=== PATIENT | male | born 1950 | race Caucasian/White ===

== ENCOUNTER 2019-06-07 12:50 | Day surgery (SDC) | payer MEDICARE, OTHER ==
[~2019-06-07] VITALS: Ht 182.9 cm; Wt 104.6 kg
[~2019-06-07 12:50] MED LIST: FISH1000 PO; MULVITMIND PO
[2019-06-07] MEDS ORDERED: Klor-Con 1010 MEQ PO (13:49)
== END 2019-06-07 23:59 | disposition home or self-care (01) ==
LOC: ORSCSDS 12:50
PROVIDERS: Surgery
PROC: 0DJD8ZZ Inspection of Lower Intestinal Tract, Via Natural or Artificial Opening Endoscopic (ICD-10-PCS; principal; 2019-06-07 14:15)
DX: Z12.11 Encounter for screening for malignant neoplasm of colon (principal); K57.30 Diverticulosis of large intestine without perforation or abscess without bleeding; E78.1 Pure hyperglyceridemia; I10 Essential (primary) hypertension; E78.5 Hyperlipidemia, unspecified; E66.9 Obesity, unspecified; Z68.32 Body mass index [BMI] 32.0-32.9, adult
CPT/HCPCS: J2704; J7120

== ENCOUNTER → 2020-03-11 | Outpatient (CLI) | payer MEDICARE, OTHER ==
[~2020-03-11] MED LIST changes: +Klor-Con 1010 MEQ PO
== END | disposition home or self-care (01) ==
LOC: PLD 11:24 → LAB SHORT 11:24
DX: D03.39 Melanoma in situ of other parts of face (principal)
CPT/HCPCS: 88305

== ENCOUNTER → 2021-04-29 | Outpatient (CLI) | payer MEDICARE, OTHER | LOC: LAB SHORT 11:38 → LAB 11:38 | DX: D48.5 Neoplasm of uncertain behavior of skin (principal); L81.4 Other melanin hyperpigmentation; L57.8 Other skin changes due to chronic exposure to nonionizing radiation; Z88.8 Allergy status to other drugs, medicaments and biological substances | CPT/HCPCS: 88305 ==

== ENCOUNTER 2021-12-04 14:54 | Emergency (ER) | payer MEDICARE, OTHER ==
[~2021-12-04] VITALS: Ht 182.9 cm; Wt 104.3 kg
[2021-12-04 15:55] LABS: BASOPHILS ABSOLUTE AUTO 0.05 K/mm3 (0.00-0.23); BASOPHILS PERCENT AUTO 1 % (0-2); EOSINOPHILS ABSOLUTE AUTO 0.15 K/mm3 (0.00-0.68); EOSINOPHILS PERCENT AUTO 2 % (0-6); Hemoglobin 15.5 g/dL (13.5-17.5); IMMATURE GRAN ABSOLUTE AUTO 0.03 K/mm3 (0.00-0.10); IMMATURE GRAN PERCENT AUTO 0 % (0-1); LYMPHOCYTES ABSOLUTE AUTO 2.18 K/mm3 (0.84-5.20); LYMPHOCYTES PERCENT AUTO 29 % (21-46); MONOCYTES ABSOLUTE AUTO 0.68 K/mm3 (0.16-1.47); MONOCYTES PERCENT AUTO 9 % (4-13); Mean Corpuscular HGB 28.8 pg (26.0-34.0); Mean Corpuscular HGB Conc 33.7 g/dL (31.5-36.5); Mean Corpuscular Volume 86 fL (80-100); Mean Platelet Volume 9.6 fL (9.1-12.4); NEUTROPHILS ABSOLUTE AUTO 4.52 K/mm3 (1.96-9.15); NEUTROPHILS PERCENT AUTO 59 % (41-73); Platelet Count 317 K/mm3 (150-400); RDW Coefficient Variation 12.3 % (11.7-14.2); RDW Standard Deviation 38.5 fL (35.1-46.3); Red Blood Cell Count 5.38 M/mm3 (4.30-5.90); White Blood Cell Count 7.61 K/mm3 (4.00-11.30)
[2021-12-04 16:10] LABS: Alanine Aminotransfer (ALT/SGP 26 U/L (12-78); Albumin, Blood 3.5 g/dL (3.4-5.0); Albumin/Globulin Ratio 0.9 (0.8-1.8); Alk Phos 121 U/L (50-136); Anion Gap 7 mmol/L (6-16); Aspartate Aminotrans (AST/SGOT 21 U/L (12-37); Bilirubin, Total 0.3 mg/dL (0.1-1.0); Blood Urea Nitrogen 20 mg/dL (8-24); Bun/Creatinine Ratio 18.3 (12.0-20.0); CO2, Blood 25 mmol/L (21-32); Calcium, Blood 8.8 mg/dL (8.5-10.1); Chloride, Blood 108 mmol/L (98-108); Creatinine, Blood 1.09 mg/dL (0.60-1.20); Glomerular Filtration Rate >60 (60-); Glucose, Blood 119 mg/dL (70-99); Potassium, Blood 4.2 mmol/L (3.5-5.5); Sodium, Blood 140 mmol/L (136-145); Total Protein, Blood 7.5 g/dL (6.4-8.2)
[2021-12-04 18:58] LABS: International Normalized Ratio 0.98; Prothrombin Time Results 10.3 Sec (9.7-11.5)
[2021-12-04] MEDS ORDERED: PRAM.5 PO (19:11)
[2021-12-04 19:12] LABS: Influenza A, PCR NEGATIVE (NEGATIVE); Influenza B, PCR NEGATIVE (NEGATIVE); Resp Syncytial Virus, PCR NEGATIVE (NEGATIVE); SARS-Cov-2 (COVID-19) PCR, MMC NEGATIVE (NEGATIVE)
== END 2021-12-04 22:17 | disposition short-term general hospital (02) ==
LOC: ER 14:54
PROVIDERS: Physician Assistant; Student in an Organized Health Care Education/Training Program
DX: G93.9 Disorder of brain, unspecified (principal)
CPT/HCPCS: 0241U; 70450; 80053; 85025; 85610; 85730; 96365; 96375; 99285-25; J1100; J1953

== ENCOUNTER 2022-01-19 11:53 | Day surgery (SDC) | payer MEDICARE, OTHER ==
[~2022-01-19] VITALS: Ht 182.9 cm; Wt 102.1 kg
[~2022-01-19 11:53] MED LIST changes: +PRAM.5 PO
[2022-01-19] MEDS ORDERED: LISI5 PO (12:36)
[2022-01-19] MEDS ORDERED: LEVE500 PO (12:37)
--- NOTE | 2022-01-19 13:27 | NUR ---
FLEET ENEMA GIVEN DUE TO POOR PREP ORDERED BY DR. RAUSCH. PATIENT HELD FLUID FOR TEN MINUTES THEN HAD A BOWEL MOVEMENT ON THE BEDSIDE COMMODE. BOWEL MOVEMENT HAD NO SOLID MATERIAL, AND WAS A LIGHT TATE. RESULTS GIVEN TO DR. RAUSCH.
--- NOTE | 2022-01-19 13:41 | NUR ---
01/19/22 1341 Jennifer Fischer History, Chart, Medications and Allergies reviewed before start of procedure. Patient confirms NPO status and agrees with scheduled surgery. 3-LEAD EKG REVIEWED WITH PHYSICIAN PRIOR TO START OF PROCEDURE. MONITOR INTACT WITH CONTINUOUS PULSE OXIMETRY AND INTERMITTENT BP. PATIENT DETERMINED TO BE ASA APPROPRIATE FOR PROPOFOL SEDATION PRIOR TO START OF PROCEDURE BY DR. RAUSCH.
--- NOTE | 2022-01-19 14:55 | NUR ---
Patient up to Ambulate independently. Gait steady. Discharge instructions reviewed with patient. Patient verbalizes understanding. Copy given to patient to take home, WELL FAMILY. Patient States Post-Procedure ride home has been arranged. Discharged via wheelchair to private car for ride home.
[2022-01-26] MEDS ORDERED: OXYC5 PO (16:39)
== END 2022-01-19 14:55 | disposition home or self-care (01) ==
LOC: ORSCMMR 11:53 → ORD 13:30 → ORSCMMR 14:55
PROVIDERS: Surgery
PROC: 0DBN8ZX Excision of Sigmoid Colon, Via Natural or Artificial Opening Endoscopic, Diagnostic (ICD-10-PCS; principal; 2022-01-19 13:30)
DX: R93.5 Abnormal findings on diagnostic imaging of other abdominal regions, including retroperitoneum (principal); C79.9 Secondary malignant neoplasm of unspecified site; K57.30 Diverticulosis of large intestine without perforation or abscess without bleeding; Z79.899 Other long term (current) drug therapy
CPT/HCPCS: 88305; A9270; J2704; J7120

== ENCOUNTER → 2022-04-12 | Outpatient (CLI) | payer MEDICARE, OTHER ==
[~2022-04-12] MED LIST changes: +LEVE500 PO; +LISI5 PO; +OXYC5 PO
[2022-04-12 15:36] LABS: C DIFFICILE DNA NEGATIVE (Negative)
== END | disposition home or self-care (01) ==
LOC: LAB 11:33 → LAB SHORT 11:33
PROVIDERS: Internal Medicine Hematology & Oncology
DX: C43.9 Malignant melanoma of skin, unspecified (principal); R10.9 Unspecified abdominal pain; R19.7 Diarrhea, unspecified
CPT/HCPCS: 87493

== ENCOUNTER → 2022-09-15 | Outpatient (CLI) | payer MEDICARE, OTHER | LOC: PLD 12:10 → LAB SHORT 12:10 | DX: L82.1 Other seborrheic keratosis (principal) | CPT/HCPCS: 88305 ==

== ENCOUNTER 2023-03-10 12:30 | Emergency (ER) | payer MEDICARE, OTHER ==
[~2023-03-10] VITALS: Ht 182.9 cm; Wt 102.1 kg
[2023-03-10 13:16] LABS: BASOPHILS ABSOLUTE AUTO 0.07 K/mm3 (0.00-0.23); BASOPHILS PERCENT AUTO 1 % (0-2); EOSINOPHILS ABSOLUTE AUTO 0.31 K/mm3 (0.00-0.68); EOSINOPHILS PERCENT AUTO 5 % (0-6); Hematocrit 46.2 % (37.0-53.0); Hemoglobin 16.5 g/dL (13.5-17.5); IMMATURE GRAN ABSOLUTE AUTO 0.02 K/mm3 (0.00-0.10); IMMATURE GRAN PERCENT AUTO 0 % (0-1); LYMPHOCYTES ABSOLUTE AUTO 2.06 K/mm3 (0.84-5.20); LYMPHOCYTES PERCENT AUTO 33 % (21-46); MONOCYTES ABSOLUTE AUTO 0.99 K/mm3 (0.16-1.47); MONOCYTES PERCENT AUTO 16 % (4-13); Mean Corpuscular HGB 30.2 pg (26.0-34.0); Mean Corpuscular HGB Conc 35.7 g/dL (31.5-36.5); Mean Corpuscular Volume 85 fL (80-100); Mean Platelet Volume 9.8 fL (9.1-12.4); NEUTROPHILS ABSOLUTE AUTO 2.76 K/mm3 (1.96-9.15); NEUTROPHILS PERCENT AUTO 45 % (41-73); Platelet Count 285 K/mm3 (150-400); RDW Coefficient Variation 11.8 % (11.7-14.2); RDW Standard Deviation 35.9 fL (35.1-46.3); Red Blood Cell Count 5.47 M/mm3 (4.30-5.90); White Blood Cell Count 6.21 K/mm3 (4.00-11.30)
[2023-03-10 13:31] LABS: Albumin, Blood 3.3 g/dL (3.4-5.0); Albumin/Globulin Ratio 0.9 (0.8-1.8); Bilirubin, Total 0.3 mg/dL (0.1-1.0); Bun/Creatinine Ratio 11.8 (12.0-20.0); Calcium, Blood 8.9 mg/dL (8.5-10.1); Creatinine, Blood 1.1 mg/dL (0.60-1.20); Globulin, Blood 3.5 g/dL (2.2-4.0); Potassium, Blood 3.8 mmol/L (3.5-5.5); Total Protein, Blood 6.8 g/dL (6.4-8.2)
[2023-03-10] MEDS ORDERED: DIAZEPAM10 MG PO (14:12)
[2023-03-10] MEDS ORDERED: MIRAPEX ER0.75 MG PO (14:14)
[2023-03-10 15:00] VITALS: BP 132/74
--- NOTE | 2023-03-10 15:21 | NUR ---
Pt. is in ED11 await lab results. Pt. is pleasant and spouse is present. Facilitatesd life review and listened for Pt. and family concerns. Pt. is a little unsettled as to the cause of his lengthy illness. Rapport is established. Pt. displays evidence of being at peace, though spouse displays some level of anxiety. Engage in theraputic listening with a calming presence. Prayed with Pt. and spouse. Both verbalized gratitude for the spiritual care visit. Spouse requested this police worker to inform her two pastors.
== END 2023-03-10 16:03 | disposition home or self-care (01) ==
LOC: ER 12:30
PROVIDERS: Physician Assistant
DX: R10.9 Unspecified abdominal pain (principal); Z79.899 Other long term (current) drug therapy
CPT/HCPCS: 80053; 83690; 85025; 86850; 86900; 86901; 99284

== ENCOUNTER 2023-03-13 09:29 | Emergency (ER) | payer MEDICARE, OTHER ==
[~2023-03-13] VITALS: Ht 182.9 cm; Wt 104.3 kg
[~2023-03-13 09:29] MED LIST changes: +DIAZEPAM10 MG PO; +MIRAPEX ER0.75 MG PO
[2023-03-13] MEDS ORDERED: ONDA4ODT MM (10:03)
[2023-03-13 10:08] LABS: BASOPHILS ABSOLUTE AUTO 0.05 K/mm3 (0.00-0.23); BASOPHILS PERCENT AUTO 1 % (0-2); EOSINOPHILS ABSOLUTE AUTO 0.26 K/mm3 (0.00-0.68); EOSINOPHILS PERCENT AUTO 4 % (0-6); Hematocrit 46.3 % (37.0-53.0); IMMATURE GRAN ABSOLUTE AUTO 0.02 K/mm3 (0.00-0.10); IMMATURE GRAN PERCENT AUTO 0 % (0-1); LYMPHOCYTES ABSOLUTE AUTO 1.76 K/mm3 (0.84-5.20); LYMPHOCYTES PERCENT AUTO 27 % (21-46); MONOCYTES ABSOLUTE AUTO 0.66 K/mm3 (0.16-1.47); MONOCYTES PERCENT AUTO 10 % (4-13); Mean Corpuscular HGB 28.8 pg (26.0-34.0); Mean Corpuscular HGB Conc 34.6 g/dL (31.5-36.5); Mean Corpuscular Volume 83 fL (80-100); Mean Platelet Volume 9.1 fL (9.1-12.4); NEUTROPHILS ABSOLUTE AUTO 3.68 K/mm3 (1.96-9.15); NEUTROPHILS PERCENT AUTO 57 % (41-73); Platelet Count 251 K/mm3 (150-400); RDW Coefficient Variation 11.6 % (11.7-14.2); RDW Standard Deviation 35.3 fL (35.1-46.3); Red Blood Cell Count 5.55 M/mm3 (4.30-5.90); White Blood Cell Count 6.43 K/mm3 (4.00-11.30)
[2023-03-13 10:30] LABS: Albumin, Blood 3.5 g/dL (3.4-5.0); Albumin/Globulin Ratio 0.9 (0.8-1.8); Bilirubin, Total 0.7 mg/dL (0.1-1.0); Bun/Creatinine Ratio 14.8 (12.0-20.0); Calcium, Blood 8.6 mg/dL (8.5-10.1); Creatinine, Blood 1.22 mg/dL (0.60-1.20); Globulin, Blood 3.7 g/dL (2.2-4.0); Potassium, Blood 4.1 mmol/L (3.5-5.5); Total Protein, Blood 7.2 g/dL (6.4-8.2)
[2023-03-13 15:30] VITALS: BP 143/76
== END 2023-03-13 15:58 | disposition home or self-care (01) ==
LOC: ER 09:29
PROVIDERS: Emergency Medicine
DX: K29.70 Gastritis, unspecified, without bleeding (principal); M54.50 Low back pain, unspecified; M79.10 Myalgia, unspecified site; Z88.8 Allergy status to other drugs, medicaments and biological substances
CPT/HCPCS: 70450; 74018; 80053; 83690; 85025; 96361; 96365; 96375; 99285-25; J0780; J1953; J2405; J7030

== ENCOUNTER → 2023-03-15 | Outpatient (CLI) | payer MEDICARE, OTHER ==
[~2023-03-15] MED LIST changes: +ONDA4ODT MM
== END ==
LOC: PLD 13:09 → LAB SHORT 13:09
DX: D48.5 Neoplasm of uncertain behavior of skin (principal)
CPT/HCPCS: 88305

== ENCOUNTER 2023-05-12 17:25 | Inpatient (IN) | payer MEDICARE, OTHER ==
[~2023-05-12] VITALS: Ht 182.9 cm; Wt 98.4 kg
[~2023-05-12 17:25] MED LIST changes: +CARAFATE1 GM/10 M1 PO; +LACOSAMIDE100 M1 PO; +LEVETIRACETAM50014 PO; +OMEP20ER PO; +Prednisone10 MG PO; +REGLAN1013 PO
[2023-05-12 18:05] LABS: BASOPHILS ABSOLUTE AUTO 0.05 K/mm3 (0.00-0.23); BASOPHILS PERCENT AUTO 1 % (0-2); EOSINOPHILS ABSOLUTE AUTO 0.13 K/mm3 (0.00-0.68); EOSINOPHILS PERCENT AUTO 3 % (0-6); Hematocrit 41.8 % (37.0-53.0); Hemoglobin 14.6 g/dL (13.5-17.5); IMMATURE GRAN ABSOLUTE AUTO 0.01 K/mm3 (0.00-0.10); IMMATURE GRAN PERCENT AUTO 0 % (0-1); LYMPHOCYTES ABSOLUTE AUTO 1.43 K/mm3 (0.84-5.20); LYMPHOCYTES PERCENT AUTO 35 % (21-46); MONOCYTES PERCENT AUTO 12 % (4-13); Mean Corpuscular HGB 29.7 pg (26.0-34.0); Mean Corpuscular HGB Conc 34.9 g/dL (31.5-36.5); Mean Corpuscular Volume 85 fL (80-100); Mean Platelet Volume 9.1 fL (9.1-12.4); NEUTROPHILS PERCENT AUTO 49 % (41-73); Platelet Count 290 K/mm3 (150-400); RDW Standard Deviation 37.2 fL (35.1-46.3); Red Blood Cell Count 4.92 M/mm3 (4.30-5.90); White Blood Cell Count 4.12 K/mm3 (4.00-11.30)
[2023-05-12 18:26] LABS: Albumin, Blood 3.4 g/dL (3.4-5.0); Albumin/Globulin Ratio 1.1 (0.8-1.8); Bilirubin, Total 0.5 mg/dL (0.1-1.0); Bun/Creatinine Ratio 12.1 (12.0-20.0); Creatinine, Blood 1.07 mg/dL (0.60-1.20); Globulin, Blood 3.2 g/dL (2.2-4.0); Total Protein, Blood 6.6 g/dL (6.4-8.2)
[2023-05-12 23:35] VITALS: BP 118/61
[2023-05-13] VITALS (15 sets, daily range): BP systolic 113–167; BP diastolic 43–71
--- NOTE | 2023-05-13 00:01 | NUR ---
PT CHART REVIEWED FOR ADMISSION
--- NOTE | 2023-05-13 04:23 | NUR ---
SHIFT SUMMARY 72 YR M ADMITTED TO THIS UNIT FROM THE ED JUST BEFORE MIDNIGHT ON 05/12/23 FOR CHOLELITHIASIS. FULL CODE. NO ACUTE CHANGES THIS SHIFT. PT HAS BEEN NPO SINCE MIDNIGHT FOR SURGICAL CONSULT IN THE A.M. HE HAS HAD NO C/O PAIN OR DISCOMFORT THIS SHIFT AND HAS NOT HAD N/V SINCE ARRIVING TO THIS UNIT. PT WAS EDUCATED ON IGNITION DANGERS AND FIRE SAFETY WHILE OXYGEN IS IN USE. HE STATED THAT HE DOES NOT HAVE ANY IGNITION SOURCES IN HIS BELONGINGS.
[2023-05-13 05:47] LABS: BASOPHILS ABSOLUTE AUTO 0.05 K/mm3 (0.00-0.23); BASOPHILS PERCENT AUTO 2 % (0-2); EOSINOPHILS ABSOLUTE AUTO 0.19 K/mm3 (0.00-0.68); EOSINOPHILS PERCENT AUTO 6 % (0-6); Hematocrit 38.5 % (37.0-53.0); Hemoglobin 13.1 g/dL (13.5-17.5); IMMATURE GRAN ABSOLUTE AUTO 0.01 K/mm3 (0.00-0.10); IMMATURE GRAN PERCENT AUTO 0 % (0-1); LYMPHOCYTES PERCENT AUTO 32 % (21-46); MONOCYTES ABSOLUTE AUTO 0.52 K/mm3 (0.16-1.47); MONOCYTES PERCENT AUTO 15 % (4-13); Mean Corpuscular HGB 28.9 pg (26.0-34.0); Mean Corpuscular Volume 85 fL (80-100); Mean Platelet Volume 9.2 fL (9.1-12.4); NEUTROPHILS ABSOLUTE AUTO 1.57 K/mm3 (1.96-9.15); NEUTROPHILS PERCENT AUTO 46 % (41-73); Platelet Count 259 K/mm3 (150-400); RDW Coefficient Variation 12.1 % (11.7-14.2); RDW Standard Deviation 37.3 fL (35.1-46.3); Red Blood Cell Count 4.53 M/mm3 (4.30-5.90); White Blood Cell Count 3.44 K/mm3 (4.00-11.30)
[2023-05-13 06:54] LABS: Magnesium, Blood 1.8 mg/dL (1.6-2.4)
[2023-05-13 06:57] LABS: Albumin, Blood 2.9 g/dL (3.4-5.0); Bilirubin, Total 0.5 mg/dL (0.1-1.0); Bun/Creatinine Ratio 11.4 (12.0-20.0); Calcium, Blood 8.6 mg/dL (8.5-10.1); Creatinine, Blood 1.05 mg/dL (0.60-1.20); Globulin, Blood 2.8 g/dL (2.2-4.0); Potassium, Blood 4.2 mmol/L (3.5-5.5); Total Protein, Blood 5.7 g/dL (6.4-8.2)
--- NOTE | 2023-05-13 07:30 | NUR ---
ASSUMED CARE: PT RESTING IN BED AT THIS TIME. FAMILY MEMBER AT BEDSIDE. NPO AT THIS TIME, AWAITING FURTHER INPUT FROM NO ACUTE NEEDS AT THIS TIME.
--- NOTE | 2023-05-13 07:50 | NUR ---
DIRECTOR BUSINESS INTELLIGENCE AT BEDSIDE AT THIS TIME
--- NOTE | 2023-05-13 08:53 | NUR ---
IGNITION RISK: PT AND VISITOR DENIES POSSESSION OF LIGHTERS/MATCHES/CIGARRETTES. NO EVIDENCE OF THESE ITEMS IN ROOM
[2023-05-13] MEDS ORDERED: DOCU100 PO (09:45)
[2023-05-13] MEDS ORDERED: CODACE30 PO (09:46)
--- NOTE | 2023-05-13 11:38 | NUR ---
Pt. is awake in bed and welcomes my visit. Spouse is at bedside. Pt. is pleasant. This funeral service licensee saw the spouse yesterday when the Pt. was in Ed triage. Rapport is re-established. Facilitated a little life review, and the circumstances that led to Pts. hospitalization. Seek to normalize the Pt. expereince. Prayed with Pt. Pt. verbalized gratitude for the spiritual care visit.
--- NOTE | 2023-05-13 12:25 | NUR ---
DR RAUSCH CAME TO SPEAK WITH PT AND ABOUT REMOVING GALLBLADDER DUE TO PT'S SYMPTOMS. PT AND AGREEABLE. DR STATED WOULD DO CONSENT FORM IN OR. PT REMAINS NPO AND DENIES FURTHER QUESTIONS OR CONCERNS AT THIS TIME.
[2023-05-13] MEDS ORDERED: LEVE500 PO (12:42)
[2023-05-13] MEDS ORDERED: Prednisone10 MG PO (12:43)
[2023-05-13] MEDS ORDERED: METO10 PO (12:43)
--- NOTE | 2023-05-13 13:15 | NUR ---
Into sds via [employer]. Pt is awake and alert, but forgetful as he has brain cancer. History, Chart, Medications and Allergies reviewed before start of procedure.Pt unable to update allergies or med list. Discussed pt meds and allergies with his spouse Meghana. Lungs clear T/O to Auscultation. Patient confirms NPO status and agrees with scheduled surgery.It is unclear when pt had his last dose of seizure medication. Dr. Lopez made aware. Surgical site prepped with 2% Chlorhexidine cloth wipe.
--- NOTE | 2023-05-13 13:19 | NUR ---
PT TAKEN TO DAY SURGERY VIA [facility] BY STAFF
[2023-05-13] MEDS ORDERED: FAMO10 PO (13:36)
--- NOTE | 2023-05-13 16:15 | NUR ---
PT RETURNED FROM DAY SURGERY VIA CART. BACK TO BED WITH AT BEDSIDE. AND PT EDUCATED ON NEW ORDERS.
[2023-05-13 16:52] LABS: Hematocrit 41.8 % (37.0-53.0); Hemoglobin 14.5 g/dL (13.5-17.5); Mean Corpuscular HGB 29.5 pg (26.0-34.0); Mean Corpuscular HGB Conc 34.7 g/dL (31.5-36.5); Mean Corpuscular Volume 85 fL (80-100); Mean Platelet Volume 9.1 fL (9.1-12.4); Platelet Count 260 K/mm3 (150-400); RDW Coefficient Variation 12.2 % (11.7-14.2); RDW Standard Deviation 37.8 fL (35.1-46.3); Red Blood Cell Count 4.92 M/mm3 (4.30-5.90); White Blood Cell Count 9.49 K/mm3 (4.00-11.30)
--- NOTE | 2023-05-13 17:56 | NUR ---
SHIFT SUMMARY: PT WENT TO OR TODAY FOR A LAPROSCOPIC CHOLECYSTECTOMY. TOLERATING CLEAR LIQUID DIET AT THIS TIME. AT BEDSIDE. NO ACUTE NEEDS OR CONCERNS AT PRESENT.
[2023-05-14 02:03] VITALS: BP 99/64
--- NOTE | 2023-05-14 04:59 | NUR ---
SHIFT SUMMARY A&OX4, AND COOPERATIVE WITH CARE. PT IS HARD OF HEARING. NO ACUTE CHANGES, VSS. PT HAS NOT REQUIRED PAIN COVERAGE SO FAR THIS SHIFT. INDEPENDENT W/FWW TO BATHROOM. TOLERATING CLEAR LIQUIDS WELL, NO NAUSEA. PT REPORTS NOT PASSING ANY FLATUS YET. X4 LAP SITES WITH STERI-STRIPS C/D/I. CALLS APPROPRIATELY, CALL LIGHT WITHIN REACH.
[2023-05-14 06:24] LABS: Albumin, Blood 2.9 g/dL (3.4-5.0); Albumin/Globulin Ratio 0.9 (0.8-1.8); Bilirubin, Total 0.6 mg/dL (0.1-1.0); Bun/Creatinine Ratio 14.3 (12.0-20.0); Calcium, Blood 8.4 mg/dL (8.5-10.1); Creatinine, Blood 1.19 mg/dL (0.60-1.20); Globulin, Blood 3.3 g/dL (2.2-4.0); Potassium, Blood 4.3 mmol/L (3.5-5.5); Total Protein, Blood 6.2 g/dL (6.4-8.2)
[2023-05-14 07:04] VITALS: BP 113/57
--- NOTE | 2023-05-14 07:34 | NUR ---
ASSUMED CARE: PT SITTING UP ON EDGE OF BED DURING REPORT. AT BEDSIDE. STATES SMALL AMOUNT OF TENDERNESS NEAR INCISION SITES BUT NO NAUSEA. DENIES FURTHER NEEDS OR CONCERNS AT THIS TIME.
--- NOTE | 2023-05-14 10:08 | NUR ---
DR RAUSCH CAME TO SEE PT AND STATED HE WANTED TO ADVANCE HIS DIET FURTHER AND CONTINUE TO OBSERVE TODAY. DR AWARE THAT PT WAS HAVING HICCUPS BUT NO OTHER COMPLAINTS THIS AM.
--- NOTE | 2023-05-14 11:57 | NUR ---
IGNITION RISK: SANITATION ASSOCIATE ENTERED ROOM TO EVAULATE IGNITION RISK. PT AND FAMILY DENIES POSSESSION OF MATCHES/LIGHTERS/ CIGARRETTES.
--- NOTE | 2023-05-14 13:49 | NUR ---
PT'S CALLED STAFF TO ROOM DUE TO PT'S HICCUPS THAT ARE STARTING TO GIVE HIM ABDOMINAL PAIN AND TWINGES. CALL TO DR MCKEON WHO GAVE ORDER FOR ATIVAN ONE TIME. INSTRUCTED TO CALL BACK IF FURTHER ORDERS NEEDED.
[2023-05-14 15:04] VITALS: BP 143/69
--- NOTE | 2023-05-14 18:02 | NUR ---
SHIFT SUMMARY: PT TOLERATING FULL LIQUID DIET, NO NAUSEA BUT WAS HAVING HICCUPS. DOSE OF ATIVAN GIVEN PER ORDERS AND PT BECAME CONFUSED AND UNSTEADY ON FEET WITH THIS. PT INSTRUCTED TO NOT ATTEMPT TO GET UP ALONE. PT'S AT BEDSIDE. NO ACUTE NEEDS OR CONCERNS AT THIS TIME.
[2023-05-14 19:20] VITALS: BP 138/88
[2023-05-15 05:28] VITALS: BP 122/69
[2023-05-15 05:55] LABS: Hematocrit 36.9 % (37.0-53.0); Hemoglobin 12.7 g/dL (13.5-17.5); Mean Corpuscular HGB Conc 34.4 g/dL (31.5-36.5); Mean Corpuscular Volume 84 fL (80-100); Mean Platelet Volume 9.7 fL (9.1-12.4); Platelet Count 267 K/mm3 (150-400); RDW Coefficient Variation 12.4 % (11.7-14.2); Red Blood Cell Count 4.38 M/mm3 (4.30-5.90); White Blood Cell Count 9.22 K/mm3 (4.00-11.30)
--- NOTE | 2023-05-15 06:15 | NUR ---
SHIFT SUMMARY PT ORIENTED, BUT DOES HAVE SOME APHASIA/WORD SALAD. PT KNOWS WHAT HE IS TRYING TO SAY BUT THE WORDS THAT COME OUT ARE NOT APPROPRIATE OR RELEVANT. PT DOES NOT SEEM AWARE THAT HIS WORDS COME OUT INCORRECTLY. REQUIRED PRN OXYCODONE AND TYLENOL ONCE THIS SHIFT WITH POSITIVE EFFECT. PT LATER C/O INABILITY TO SLEEP D/T HIS RLS AND ASKED FOR SLEEPING MEDICATION. VALERIE LOPEZ NOTIFIED AND A ONE TIME ORDER OF MELATONIN WAS GIVEN, IF INEFFECTIVE PT COULD HAVE TEMAZEPAM. PT WAS GIVEN MELATONIN AND AMBULATED AROUND THE UNIT. WITHIN 1 HR PT WAS SLEEPING AND SLEPT THE REMAINDER OF THE NIGHT AND DID NOT REQUIRE TEMAZEPAM. AT BEDSIDE. Q1H SAFETY CHECKS COMPLETED WITH NO SOURCES OF IGNITION FOUND.
[2023-05-15 06:51] LABS: Bilirubin, Total 0.4 mg/dL (0.1-1.0); Bun/Creatinine Ratio 18.6 (12.0-20.0); Calcium, Blood 8.5 mg/dL (8.5-10.1); Creatinine, Blood 1.02 mg/dL (0.60-1.20); Globulin, Blood 2.9 g/dL (2.2-4.0); Potassium, Blood 4.1 mmol/L (3.5-5.5); Total Protein, Blood 5.9 g/dL (6.4-8.2)
[2023-05-15 08:00] VITALS: BP 125/76
--- NOTE | 2023-05-15 09:00 | NUR ---
pt laying in bed, spouce in room, a/ox3, unable to answer some questions, maybe a bit of word salad, lungs are clear, dim in bases, resp even and unlabored, no cough noted, hrr, no edema noted, ppp+1, cap refill<3 sec, vs stable, afebrile, piv site is clear and patent, btx4, abd flat soft nontender, voids without diff, skin c/w/d, maew, adrianna, call light in reach. gave prune juice for constipation.
[2023-05-15] MEDS ORDERED: ONDA4ODT MM (14:55)
[2023-05-15] MEDS ORDERED: Acetaminophen650 M1 PO (15:07)
--- NOTE | 2023-05-15 15:35 | NUR ---
pt has been discharged to home, iv removed intact, went over discharge instructions with him and spouce, they verbalized understanding, has f/u with hernandez already made, new med faxed to [facility], left via wheelchair with home care nurse and spouce in attendence.
== END 2023-05-15 15:26 | disposition home or self-care (01) | DRG 419 ==
LOC: ER 17:25 → MEDS 17:26
PROVIDERS: Internal Medicine; Physician Assistant; Surgery; ADMIT Student in an Organized Health Care Education/Training Program
PROC: BF131ZZ Fluoroscopy of Gallbladder and Bile Ducts using Low Osmolar Contrast (ICD-10-PCS; 2023-05-13)
PROC: 0FT44ZZ Resection of Gallbladder, Percutaneous Endoscopic Approach (ICD-10-PCS; principal; 2023-05-13 14:00)
DX: K80.64 Calculus of gallbladder and bile duct with chronic cholecystitis without obstruction (principal); H91.93 Unspecified hearing loss, bilateral; M19.90 Unspecified osteoarthritis, unspecified site; E78.1 Pure hyperglyceridemia; C43.31 Malignant melanoma of nose; K08.409 Partial loss of teeth, unspecified cause, unspecified class; G25.81 Restless legs syndrome; Z87.19 Personal history of other diseases of the digestive system; Z98.1 Arthrodesis status; Z98.890 Other specified postprocedural states; Z85.841 Personal history of malignant neoplasm of brain; Z88.8 Allergy status to other drugs, medicaments and biological substances; Z79.899 Other long term (current) drug therapy; Z92.21 Personal history of antineoplastic chemotherapy; Z86.69 Personal history of other diseases of the nervous system and sense organs
CPT/HCPCS: 36415; 74177; 74300; 76705; 80053; 83690; 83735; 84484; 85025; 85027; 88304; 93005; 93010; 96361; 96374; 96375; 96376; 99285-25; A9270; C1729; G0378; J0690; J2060; J2250; J2405; J2704; J3010; J7030; J7120; J7512; Q9967

== ENCOUNTER 2023-05-24 07:51 | Day surgery (SDC) | payer MEDICARE, OTHER ==
[~2023-05-24] VITALS: Ht 182.9 cm; Wt 93.6 kg
[~2023-05-24 07:51] MED LIST changes: +Acetaminophen650 M1 PO; +CODACE30 PO; +DOCU100 PO; +FAMO10 PO; +METO10 PO
--- NOTE | 2023-05-24 09:16 | NUR ---
05/24/23 0916 Cherelle Martin CALL LIGHT WITHIN REACH.
[2023-05-24 11:00] VITALS: BP 111/67
== END 2023-05-24 10:55 | disposition home or self-care (01) ==
LOC: ORSCSDS 07:51
PROVIDERS: Surgery
PROC: 0DB68ZX Excision of Stomach, Via Natural or Artificial Opening Endoscopic, Diagnostic (ICD-10-PCS; principal; 2023-05-24 09:15)
PROC: 0DB48ZX Excision of Esophagogastric Junction, Via Natural or Artificial Opening Endoscopic, Diagnostic (ICD-10-PCS; principal; 2023-05-24 09:15)
DX: R11.2 Nausea with vomiting, unspecified (principal); K20.90 Esophagitis, unspecified without bleeding; K29.50 Unspecified chronic gastritis without bleeding; E78.1 Pure hyperglyceridemia; G25.81 Restless legs syndrome; Z85.820 Personal history of malignant melanoma of skin; Z85.841 Personal history of malignant neoplasm of brain; Z79.899 Other long term (current) drug therapy
CPT/HCPCS: 88305; 88342; J0461; J2001; J2405; J2704; J7120; Q9968

== ENCOUNTER 2023-06-04 22:30 | Emergency (ER) | payer OTHER, MEDICARE ==
[~2023-06-04] VITALS: Ht 182.9 cm; Wt 81.7 kg
[2023-06-04 23:08] VITALS: BP 94/60
[2023-06-10] MEDS ORDERED: ONDA4ODT MM (13:04)
== END 2023-06-05 00:15 | disposition home or self-care (01) ==
LOC: ER 22:30
DX: S70.02XA Contusion of left hip, initial encounter (principal); W01.0XXA Fall on same level from slipping, tripping and stumbling without subsequent striking against object, initial encounter; Z79.899 Other long term (current) drug therapy; Z88.8 Allergy status to other drugs, medicaments and biological substances
CPT/HCPCS: 73502; 96374; 99283-25; J1885

== ENCOUNTER 2023-06-09 13:03 | Emergency (ER) | payer MEDICARE, OTHER ==
[~2023-06-09] VITALS: Ht 182.9 cm; Wt 91.6 kg
[2023-06-09 13:11] VITALS: BP 108/60
[2023-06-09 13:35] LABS: BASOPHILS ABSOLUTE AUTO 0.04 K/mm3 (0.00-0.23); BASOPHILS PERCENT AUTO 1 % (0-2); EOSINOPHILS ABSOLUTE AUTO 0.38 K/mm3 (0.00-0.68); EOSINOPHILS PERCENT AUTO 7 % (0-6); Hematocrit 38.3 % (37.0-53.0); Hemoglobin 13.1 g/dL (13.5-17.5); IMMATURE GRAN ABSOLUTE AUTO 0.01 K/mm3 (0.00-0.10); IMMATURE GRAN PERCENT AUTO 0 % (0-1); LYMPHOCYTES PERCENT AUTO 38 % (21-46); MONOCYTES ABSOLUTE AUTO 0.61 K/mm3 (0.16-1.47); MONOCYTES PERCENT AUTO 12 % (4-13); Mean Corpuscular HGB 29.3 pg (26.0-34.0); Mean Corpuscular HGB Conc 34.2 g/dL (31.5-36.5); Mean Corpuscular Volume 86 fL (80-100); Mean Platelet Volume 9.5 fL (9.1-12.4); NEUTROPHILS ABSOLUTE AUTO 2.25 K/mm3 (1.96-9.15); NEUTROPHILS PERCENT AUTO 43 % (41-73); Platelet Count 200 K/mm3 (150-400); RDW Coefficient Variation 12.2 % (11.7-14.2); RDW Standard Deviation 38.4 fL (35.1-46.3); Red Blood Cell Count 4.47 M/mm3 (4.30-5.90); White Blood Cell Count 5.29 K/mm3 (4.00-11.30)
[2023-06-09 14:05] LABS: Albumin, Blood 3.3 g/dL (3.4-5.0); Albumin/Globulin Ratio 1.2 (0.8-1.8); Bilirubin, Total 0.4 mg/dL (0.1-1.0); Bun/Creatinine Ratio 22.9 (12.0-20.0); Creatinine, Blood 1.05 mg/dL (0.60-1.20); Globulin, Blood 2.8 g/dL (2.2-4.0); Potassium, Blood 4.1 mmol/L (3.5-5.5); Total Protein, Blood 6.1 g/dL (6.4-8.2)
[2023-06-09] MEDS ORDERED: PROM25 PO (15:38)
[2023-06-10] MEDS ORDERED: ONDA4ODT MM (13:04)
== END 2023-06-09 15:47 | disposition home or self-care (01) ==
LOC: ER 13:03
PROVIDERS: Emergency Medicine
DX: R11.2 Nausea with vomiting, unspecified (principal); R10.9 Unspecified abdominal pain; Z85.841 Personal history of malignant neoplasm of brain; Z88.8 Allergy status to other drugs, medicaments and biological substances
CPT/HCPCS: 80053; 83690; 85025; 99284; J7030

== ENCOUNTER → 2023-09-09 | Outpatient (CLI) | payer MEDICARE, OTHER ==
[~2023-09-09] MED LIST changes: +LOPE2C PO; +PROM25 PO; +SENN187 PO; +TRAZ50 PO
[2023-09-09 14:45] LABS: Stool Occult Bld Immuno 1 Negative (NEGATIVE); Stool Occult Bld Immuno 2 Negative (NEGATIVE); Stool Occult Bld Immuno 3 Negative (NEGATIVE)
== END ==
LOC: LAB SHORT 09-08 12:01 → LAB 12:02
PROVIDERS: Internal Medicine Hematology & Oncology
DX: C43.31 Malignant melanoma of nose (principal)
CPT/HCPCS: G0328

== ENCOUNTER 2023-10-23 20:12 | Emergency (ER) | payer MEDICARE, OTHER ==
[~2023-10-23] VITALS: Ht 182.9 cm; Wt 81.7 kg
[2023-10-23 20:38] LABS: BASOPHILS ABSOLUTE AUTO 0.03 K/mm3 (0.00-0.23); BASOPHILS PERCENT AUTO 1 % (0-2); EOSINOPHILS ABSOLUTE AUTO 0.36 K/mm3 (0.00-0.68); EOSINOPHILS PERCENT AUTO 5 % (0-6); Hematocrit 36.9 % (37.0-53.0); IMMATURE GRAN ABSOLUTE AUTO 0.02 K/mm3 (0.00-0.10); IMMATURE GRAN PERCENT AUTO 0 % (0-1); LYMPHOCYTES ABSOLUTE AUTO 2.49 K/mm3 (0.84-5.20); LYMPHOCYTES PERCENT AUTO 38 % (21-46); MONOCYTES ABSOLUTE AUTO 0.76 K/mm3 (0.16-1.47); MONOCYTES PERCENT AUTO 12 % (4-13); Mean Corpuscular HGB Conc 32.5 g/dL (31.5-36.5); Mean Corpuscular Volume 86 fL (80-100); Mean Platelet Volume 9.1 fL (9.1-12.4); NEUTROPHILS ABSOLUTE AUTO 2.95 K/mm3 (1.96-9.15); NEUTROPHILS PERCENT AUTO 45 % (41-73); Platelet Count 391 K/mm3 (150-400); RDW Coefficient Variation 13.9 % (11.7-14.2); RDW Standard Deviation 43.8 fL (35.1-46.3); Red Blood Cell Count 4.28 M/mm3 (4.30-5.90); White Blood Cell Count 6.61 K/mm3 (4.00-11.30)
[2023-10-23 20:55] LABS: Albumin, Blood 3.1 g/dL (3.4-5.0); Albumin/Globulin Ratio 0.7 (0.8-1.8); Bilirubin, Total 0.3 mg/dL (0.1-1.0); Bun/Creatinine Ratio 24.4 (12.0-20.0); Calcium, Blood 9.1 mg/dL (8.5-10.1); Creatinine, Blood 0.86 mg/dL (0.60-1.20); Globulin, Blood 4.2 g/dL (2.2-4.0); Potassium, Blood 3.9 mmol/L (3.5-5.5); Total Protein, Blood 7.3 g/dL (6.4-8.2)
[2023-10-23 23:00] LABS: Source, Urine Clean Catch
[2023-10-23 23:11] LABS: Bilirubin, Urine Neg (Neg); Blood, Urine 2+ (Neg); Glucose Qualitative, Urine Neg (Neg); Ketones, Urine 2+ (Neg); Leukocyte Esterase, Urine Neg (Neg); Nitrite, Urine Neg (Neg); Protein, Urine 1+ (Neg); Urobilinogen, Urine NORM (Normal); pH, Urine 6.5 (5.0-8.0)
[2023-10-23 23:16] LABS: Appearance, Urine Clear (Clear); Color, Urine Yellow (P-Yellow)
[2023-10-23 23:26] LABS: Bacteria Few /hpf; Mucus Light (0-Heavy); Red Blood Cells, Urine 0-2 /hpf (0-2); Squamous Epithelial Cells Few /hpf (Few); White Blood Cells, Urine 0-2 /hpf (0-5)
[2023-10-23 23:30] VITALS: BP 102/73
== END 2023-10-24 00:04 | disposition home or self-care (01) ==
LOC: ER 20:12
PROVIDERS: Emergency Medicine
DX: R41.0 Disorientation, unspecified (principal); C71.9 Malignant neoplasm of brain, unspecified; Z88.8 Allergy status to other drugs, medicaments and biological substances; Z79.899 Other long term (current) drug therapy
CPT/HCPCS: 51701; 70450; 80053; 81001; 82140; 83605; 85025; 93005; 93010; 96361-59; 96374-59; 96375-59; 99285-25; J2405; J3010; J7030

== ENCOUNTER 2023-11-09 10:35 | Emergency (ER) | payer MEDICARE, OTHER ==
[~2023-11-09] VITALS: Ht 182.9 cm; Wt 72.6 kg
[2023-11-09 11:07] LABS: BASOPHILS ABSOLUTE AUTO 0.07 K/mm3 (0.00-0.23); BASOPHILS PERCENT AUTO 1 % (0-2); EOSINOPHILS ABSOLUTE AUTO 0.26 K/mm3 (0.00-0.68); EOSINOPHILS PERCENT AUTO 3 % (0-6); Hematocrit 38.3 % (37.0-53.0); Hemoglobin 12.5 g/dL (13.5-17.5); IMMATURE GRAN ABSOLUTE AUTO 0.04 K/mm3 (0.00-0.10); IMMATURE GRAN PERCENT AUTO 0 % (0-1); LYMPHOCYTES PERCENT AUTO 16 % (21-46); MONOCYTES PERCENT AUTO 10 % (4-13); Mean Corpuscular HGB 27.8 pg (26.0-34.0); Mean Corpuscular HGB Conc 32.6 g/dL (31.5-36.5); Mean Corpuscular Volume 85 fL (80-100); Mean Platelet Volume 9.1 fL (9.1-12.4); NEUTROPHILS ABSOLUTE AUTO 7.37 K/mm3 (1.96-9.15); NEUTROPHILS PERCENT AUTO 71 % (41-73); Platelet Count 453 K/mm3 (150-400); RDW Coefficient Variation 13.7 % (11.7-14.2); RDW Standard Deviation 42.6 fL (35.1-46.3); Red Blood Cell Count 4.49 M/mm3 (4.30-5.90); White Blood Cell Count 10.44 K/mm3 (4.00-11.30)
[2023-11-09 11:19] LABS: Source, Urine Straight Cath
[2023-11-09 11:23] LABS: Appearance, Urine Clear (Clear); Bilirubin, Urine Neg (Neg); Blood, Urine 3+ (Neg); Color, Urine Yellow (P-Yellow); Glucose Qualitative, Urine Neg (Neg); Ketones, Urine 4+ (Neg); Leukocyte Esterase, Urine Neg (Neg); Nitrite, Urine Neg (Neg); Protein, Urine 1+ (Neg); Specific Gravity, Urine 1.025 (1.003-1.022); Urobilinogen, Urine NORM (Normal)
[2023-11-09 11:33] LABS: Bacteria Rare /hpf; Squamous Epithelial Cells Rare /hpf (Few); White Blood Cells, Urine 0-2 /hpf (0-5)
[2023-11-09 11:35] LABS: Hyaline Casts 0-2 /lpf (0-2)
[2023-11-09 11:36] LABS: Albumin/Globulin Ratio 0.6 (0.8-1.8); Bilirubin, Total 0.7 mg/dL (0.1-1.0); Bun/Creatinine Ratio 26.9 (12.0-20.0); Calcium, Blood 9.8 mg/dL (8.5-10.1); Creatinine, Blood 0.86 mg/dL (0.60-1.20); Globulin, Blood 4.7 g/dL (2.2-4.0); Potassium, Blood 4.3 mmol/L (3.5-5.5); Total Protein, Blood 7.7 g/dL (6.4-8.2)
[2023-11-09 13:05] LABS: Thyroid Stimulating Hormone 1.27 uIU/mL (0.360-4.800)
[2023-11-09] MEDS ORDERED: REMERON1510 PO (13:56)
[2023-11-09] MEDS ORDERED: ZENPEP DR 25,01 EAC1 PO (13:58)
[2023-11-09] MEDS ORDERED: Norco 5-325 Ta1 EACH PO (13:58)
[2023-11-09 16:15] VITALS: BP 126/63
== END 2023-11-09 16:23 | disposition home or self-care (01) ==
LOC: ER 10:35
PROVIDERS: Emergency Medicine
DX: R41.0 Disorientation, unspecified (principal); F03.90 Unspecified dementia, unspecified severity, without behavioral disturbance, psychotic disturbance, mood disturbance, and anxiety; E86.0 Dehydration; C79.31 Secondary malignant neoplasm of brain; C43.9 Malignant melanoma of skin, unspecified; Z88.8 Allergy status to other drugs, medicaments and biological substances; Z79.899 Other long term (current) drug therapy
CPT/HCPCS: 51701; 70450; 80053; 81001; 82607; 82746; 84443; 85025; 93005; 93010; 96360; 96361; 99285-25; J7030